=== PATIENT | female | born 1950 | race Two or more races ===

== ENCOUNTER → 2024-10-17 | Day surgery (SDC) | payer OTHER ==
[~2024-10-17] VITALS: Ht 167.6 cm; Wt 83.0 kg
[~2024-10-17] MED LIST: ALEN70TA21 PO; LATA0.008 EACHEYE; NIFE1TAB31 PO; ONDANSETRON HCL 4 MG/2 ML VIAL IV ONE; VALS40TA2 PO
--- NOTE | 2024-10-17 10:52 | DVHHP2 ---
GI H&P Pre-Op Assessment Date: 10/17/24 Chief complaint: colon cancer screening HPI: per clinic note Past medical history: per clinic note Past surgical history: per clinic note Family history: per clinic note Physical exam: General: NAD, AAOX3 HEENT: PERRL, no scleral icterus, normal hearing, gums without lesions or bleeding, oropharynx clear without erythema or exudate. Neck: Supple without enlargement of the thyroid, or lymphadenopathy. Chest: Normal size and shape, no tenderness, lung mascorro clear to auscultation and percussion, nonlabored breathing. Heart: RRR, no murmur Abdomen: non-distended, no tenderness to palpation, +BS, no hepatosplenomegaly Extremities: no edema Neurological: CN II-XII intact, sensation intact in all extremities, 5+ strength in all extremities Skin: No rashes, No jaundice Assessment: - colon cancer screening Plan: - Colonoscopy - Risks (bleeding, infection, perforation, reaction to sedation medications and cardiopulmonary arrest) and benefit of the procedure were explained to patient. Patient agrees to undergo the procedure. MERY GALLRADO MD Oct 17, 2024 10:52
[2024-10-17 11:10] VITALS: PULSE 85; RESP 12; TEMP 97.8; O2SAT 100
--- NOTE | 2024-10-17 11:11 | DVHOP2 ---
Operative Report DATE OF OPERATION: 10/17/24 PROCEDURE: Colonoscopy. PREOPERATIVE INDICATION: The patient is a 73 -year-old female undergoing colonoscopy for colon cancer screening. POSTOPERATIVE DIAGNOSES: 1. Mild diverticulosis in the left colon. 2. Internal hemorrhoids. PROCEDURE PERFORMED BY: Román Patel M.D. SCOPE: Olympus videocolonoscope. ASA CLASS: 3 PREOPERATIVE MEDICATIONS: MAC with Dr Chavez PROCEDURE IN DETAIL: After obtaining an informed consent, the patient was placed on left lateral decubitus position. She was then sedated with the above medications. A rectal examination was performed that was normal. The colonoscope was then passed through the anus into the rectosigmoid and through the descending, transverse, and ascending colon up to the cecum with visualization of the appendiceal orifice, base of the cecum and the ileocecal valve. No mass or polyp was observed. There was mild diverticulosis in the left colon. There were internal hemorrhoids. The colonoscope was then withdrawn. The patient tolerated the procedure well without difficulty. WITHDRAWAL TIME: 6 minutes QUALITY OF THE PREP: [place] Bowel Prep score: 7 COMPLICATIONS : None SPECIMENS: None DISPOSITION: D/C to home PLAN: 1. Repeat colonoscopy in 10 years for colon cancer screening. ROMÁN PATEL MD Oct 17, 2024 11:11
--- NOTE | 2024-10-17 11:12 | DVHDS2 ---
Physician Discharge Progress N Final Diagnosis: diverticulosis, internal hemorrhoids Operations or Procedures: Operations or Procedures colonoscopy Condition on Discharge: Good Disposition: Home Discharge Instructions: Diet: Regular Activity: No Restrictions, As Tolerated Medications: resume previous home medications Follow Up Care: Discharge Statement: "Patient was advised to return to the ER or call 911 if any headaches, dizziness, shortness of breath, chest pain, abdominal pain, bleeding, fevers, or worsening of medical condition. Patient was counseled about treatment plan, medications, possible side effects, patientverbalized understanding. All questions were answered to the best of my ability. This discharge took greater then 30 minutes in planning, reviewing doc umentation, counseling the patient, and discussing with other team members." MERY GALLARDO MD Oct 17, 2024 11:12
[2024-10-17 11:25] VITALS: PULSE 85; RESP 13; O2SAT 100
[2024-10-17 11:40] VITALS: BP 134/76; PULSE 84; RESP 13; O2SAT 97
== END | disposition home or self-care (01) ==
LOC: GI 09:12
PROVIDERS: ATTEND Internal Medicine Gastroenterology
DX: Z12.11 Encounter for screening for malignant neoplasm of colon (principal); K57.30 Diverticulosis of large intestine without perforation or abscess without bleeding; K64.8 Other hemorrhoids; I12.9 Hypertensive chronic kidney disease with stage 1 through stage 4 chronic kidney disease, or unspecified chronic kidney disease; N18.30 Chronic kidney disease, stage 3 unspecified; Z79.899 Other long term (current) drug therapy; Z98.891 History of uterine scar from previous surgery; Z98.890 Other specified postprocedural states; Z87.891 Personal history of nicotine dependence
CPT/HCPCS: 45378; J2405; J7030